=== PATIENT | male | born 1940 | race Caucasian/White ===

== ENCOUNTER 2020-01-13 22:56 | Observation (INO) ==
[2020-01-14] MEDS ORDERED: Naloxone 0.4 MG/ML INJ IVP PRN (03:41)
[2020-01-14] MEDS ORDERED: Ondansetron ODT 4 MG TAB.RAPDIS SL PRN (03:41)
[2020-01-14] MEDS ORDERED: 0.9 % Sodium Chloride 1,000 ML IVC SCH (03:45)
[2020-01-14 04:43] LABS: Basophils % 0.5 %; Eosinophils # 0.1 K/mcL (0.0-0.6); Eosinophils % 1.9 %; Hematocrit 41.4 % (37.5-50.1); Hemoglobin 12.9 g/dL (12.9-16.9); Immature Granulocytes % 0.4 % (0-4); Lymphocytes % 13.3 %; Mean Corpuscular HGB Conc 31.2 g/dL (31.6-35.5); Mean Corpuscular Hemoglobin 29.1 pg (28.0-33.3); Mean Corpuscular Volume 93.5 fL (83.0-100.0); Mean Platelet Volume 11.4 fL (9.4-12.4); Monocytes % 12.9 %; Neutrophils # 5.3 K/mcL (1.6-8.9); Platelet Count 164 K/mcL (140-400); Red Blood Count 4.43 M/mcL (4.19-5.50); White Blood Count 7.5 K/mcL (4.3-11.1)
[2020-01-14 04:46] LABS: INR 2.9
[2020-01-14 05:00] LABS: Alanine Aminotransferase 17 Units/L (7-52); Albumin 3.4 g/dL (3.5-5.7); Albumin/Globulin Ratio 1.2 (1.1-2.2); Alkaline Phosphatase 105 Units/L (34-104); Aspartate Amino Transferase 16 Units/L (13-39); BUN/Creatinine Ratio 19 (6-26); Bilirubin,Total 0.3 mg/dL (0.3-1.0); Blood Urea Nitrogen 21 mg/dL (8-23); Calcium 8.8 mg/dL (8.6-10.3); Carbon Dioxide 34 mEq/L (23-29); Chloride 99 mEq/L (98-107); Chol/HDL Ratio 4.3 (0-4.9); Cholesterol 155 mg/dL (< 200); Globulin 2.8 g/dL (2.4-3.5); Glucose 187 mg/dL (70-105); HDL Cholesterol 36 mg/dL (40-59); LDL Cholesterol,Calculated 89 mg/dL (0-99); Magnesium 1.5 mg/dL (1.6-2.6); Osmolality,Calculated 294 (280-300); Phosphorous 2.9 mg/dL (2.7-4.5); Potassium 3.7 mEq/L (3.5-5.1); Sodium 138 mEq/L (136-145); Total Protein 6.2 g/dL (6.4-8.9); Triglycerides 148 mg/dL (< 150); eGFR For African Americans > 60 (> 60); eGFR For Non-African Americans > 60 (> 60)
[2020-01-14 09:01] LABS: Estimated Average Glucose 180 mg/dl
[2020-01-14] MEDS ORDERED: D5% in Water 1,000 ML IVC PRN (10:58)
[2020-01-14] MEDS ORDERED: Dextrose Gel 15 GM/37.5 ML TUBE PO PRN ×2 (10:58)
[2020-01-14] MEDS ORDERED: *HR* Dextrose 50 % in Water (Syg) 50 ML SYRINGE IVP PRN (10:58)
[2020-01-14] MEDS ORDERED: Magnesium Sulfate 1 GM/102 ML PIGGYBACK IVPB ONE (10:59)
[2020-01-14] MEDS ORDERED: *HR* Labetalol 20 MG/4 ML SYRINGE IVP PRN (11:02)
[2020-01-14] MEDS: Insulin LISPRO 300 UNITS/3 ML VIAL SQ SCH ×3 (12:21→17:47)
[2020-01-14] MEDS: Cyanocobalamin (B-12) 1,000 MCG/ML VIAL SQ SCH (13:18)
[2020-01-14] MEDS: niCARdipine 20 MG/200 ML MLS IVC SCH (14:42)
[2020-01-14 15:30] LABS: Bilirubin,Urine Negative (Negative); Blood,Urine Trace (Negative); Clarity,Urine Clear (Clear); Color,Urine Yellow (Yellow); Glucose,Urine (UA) 100 mg/dL (Normal); Ketones,Urine Negative (Negative); Leukocyte Esterase,Urine Negative (Negative); Nitrite,Urine Negative (Negative); Protein,Urine >=300 mg/dL (Neg-Trace); Specific Gravity,Urine 1.014 (1.010-1.025); Urobilinogen,Urine Normal (Normal)
[2020-01-14 15:31] LABS: Bacteria,Urine None Seen per hpf (None-Few); Hyaline Casts,Urine None Seen per lpf (None-Few); Squamous Epithelial Cell,Urine Many per lpf (None-Few); WBC,Urine 0-3 per hpf (0-3)
[2020-01-14] MEDS ORDERED: *HR* Warfarin 1 MG TABLET PO ONE (18:00)
[2020-01-14] MEDS ORDERED: Warfarin perPT PO PRN (18:00)
[2020-01-14] MEDS ORDERED: Insulin LISPRO 300 UNITS/3 ML VIAL SQ SCH (21:00)
[2020-01-14] MEDS ORDERED: Perflutren Lipid Microsphere 1.3 ML in 0.9 % Sodium Chloride 8.7 ML IVP ONE (21:04)
[2020-01-15] MEDS: niCARdipine 20 MG/200 ML MLS IVC SCH ×4 (00:18→08:22)
[2020-01-15 01:16] LABS: INR 3.1
[2020-01-15 01:29] LABS: BUN/Creatinine Ratio 16 (6-26); Blood Urea Nitrogen 15 mg/dL (8-23); Calcium 8.8 mg/dL (8.6-10.3); Carbon Dioxide 31 mEq/L (23-29); Chloride 102 mEq/L (98-107); Glucose 135 mg/dL (70-105); Magnesium 1.7 mg/dL (1.6-2.6); Osmolality,Calculated 293 (280-300); Phosphorous 2.5 mg/dL (2.7-4.5); Potassium 3.7 mEq/L (3.5-5.1); Sodium 140 mEq/L (136-145); eGFR For African Americans > 60 (> 60); eGFR For Non-African Americans > 60 (> 60)
[2020-01-15] MEDS: Insulin LISPRO 300 UNITS/3 ML VIAL SQ SCH ×2 (08:22→12:24)
[2020-01-15] MEDS: Cyanocobalamin (B-12) 1,000 MCG/ML VIAL SQ SCH (08:23)
[2020-01-15] MEDS ORDERED: Aspirin 81 MG TAB.CHEW PO SCH (09:00)
[2020-01-15 11:47] VITALS: BP 134/85
[2020-01-15] MEDS ORDERED: *HR* Warfarin 1 MG TABLET PO ONE (18:00)
== END 2020-01-15 15:34 | disposition home health service (06) ==
LOC: 3BNU → EDSTATUS 01-14 02:39 → SUATTDRO 01-14 02:40 → 2NNU 01-14 14:51
PROVIDERS: ADMIT Internal Medicine; ATTEND Internal Medicine

== ENCOUNTER 2020-06-14 11:49 | Inpatient (IN) ==
[2020-06-14] MEDS ORDERED: *HR* Heparin 10,000 UNIT/10 ML VIAL ONE (11:52)
[2020-06-14] MEDS ORDERED: Heparin 1,000 UNITS/500 mL 0 ML ONE (11:52)
[2020-06-14] MEDS ORDERED: *HR* Midazolam HCl 2 MG/2 ML VIAL ONE (11:52)
[2020-06-14] MEDS ORDERED: *HR* FentaNYL (PF) 100 MCG/2 ML VIAL ONE (11:52)
[2020-06-14] MEDS ORDERED: 0.9 % Sodium Chloride 2,000 ML ONE (11:53)
[2020-06-14] MEDS ORDERED: ISOVUE-370 200 ML INFUS..BTL ONE (11:53)
[2020-06-14] MEDS ORDERED: Nitroglycerin 1,000 MCG/10 ML VIAL IV ONE (11:53)
[2020-06-14 12:13] LABS: Basophils % 0.5 %; Eosinophils # 0.1 K/mcL (0.0-0.6); Eosinophils % 1.3 %; Hematocrit 44.5 % (37.5-50.1); Hemoglobin 14.3 g/dL (12.9-16.9); Immature Granulocytes % 0.6 % (0-4); Lymphocytes # 0.9 K/mcL (0.6-4.6); Lymphocytes % 11.8 %; Mean Corpuscular HGB Conc 32.1 g/dL (31.6-35.5); Mean Corpuscular Volume 93.3 fL (83.0-100.0); Mean Platelet Volume 11.5 fL (9.4-12.4); Monocytes # 1.2 K/mcL (0.0-1.3); Monocytes % 15.2 %; Neutrophils # 5.6 K/mcL (1.6-8.9); Platelet Count 172 K/mcL (140-400); Red Blood Count 4.77 M/mcL (4.19-5.50); Red Cell Distribution Width 13.4 % (11.5-14.5); Segmented Neutrophils % 70.6 %
[2020-06-14 12:19] LABS: INR 1.9; Prothrombin Time 21.1 Seconds (9.4-12.1)
[2020-06-14 12:22] LABS: Activated Partial Thrombo Time 40.4 Seconds (26.0-36.0)
[2020-06-14] MEDS ORDERED: Tirofiban 12.5 MG/250ML 12.5 MG/250 ML BAG ONE (12:29)
[2020-06-14 12:35] LABS: Alanine Aminotransferase 23 Units/L (7-52); Albumin 3.6 g/dL (3.5-5.7); Albumin/Globulin Ratio 1.1 (1.1-2.2); Alkaline Phosphatase 100 Units/L (34-104); Aspartate Amino Transferase 26 Units/L (13-39); BUN/Creatinine Ratio 17 (6-26); Bilirubin,Direct 0.1 mg/dL (0.0-0.2); Bilirubin,Indirect 0.4 mg/dL (0.0-1.0); Bilirubin,Total 0.5 mg/dL (0.3-1.0); Blood Urea Nitrogen 27 mg/dL (8-23); Carbon Dioxide 31 mEq/L (23-29); Chloride 98 mEq/L (98-107); Ethanol < 10 mg/dL (Less than 10); Globulin 3.3 g/dL (2.4-3.5); Glucose 274 mg/dL (70-105); Osmolality,Calculated 295 (280-300); Sodium 135 mEq/L (136-145); Total Protein 6.9 g/dL (6.4-8.9); Troponin I 0.03 ng/mL (< 0.04); eGFR For African Americans 50 (> 60); eGFR For Non-African Americans 42 (> 60)
[2020-06-14] MEDS ORDERED: *HR* Atropine Sulfate 1 MG/10 ML SYRINGE ONE (12:37)
[2020-06-14] MEDS ORDERED: Perflutren Lipid Microsphere 1.3 ML in 0.9 % Sodium Chloride 8.7 ML IVP PRN (13:56)
[2020-06-14] MEDS ORDERED: D5% in Water 1,000 ML IVC PRN (14:48)
[2020-06-14] MEDS ORDERED: Dextrose Gel 15 GM/37.5 ML TUBE PO PRN ×2 (14:48)
[2020-06-14] MEDS ORDERED: *HR* Dextrose 50 % in Water (Vial) 50 ML VIAL IVP PRN (14:48)
[2020-06-14] MEDS: 0.9 % Sodium Chloride 1,000 ML IVC SCH ×2 (15:08→22:27)
[2020-06-14 15:56] LABS: Bilirubin,Urine Negative (Negative); Blood,Urine Small (Negative); Clarity,Urine Clear (Clear); Color,Urine Colorless (Yellow); Glucose,Urine (UA) 500 mg/dL (Normal); Ketones,Urine Negative (Negative); Leukocyte Esterase,Urine Negative (Negative); Mucus,Urine Few per lpf (None-Few); Nitrite,Urine Negative (Negative); Protein,Urine 70 mg/dL (Neg-Trace); Specific Gravity,Urine 1.028 (1.010-1.025); Urobilinogen,Urine Normal (Normal); WBC,Urine 0-3 per hpf (0-3)
[2020-06-14 16:12] LABS: Amphetamine Screen,Urine Negative ng/mL (Cutoff=1000); Barbiturate Screen,Urine Negative ng/mL (Cutoff=200); Benzodiazepines Screen,Urine Negative ng/mL (Cutoff=200); Cannabinoid Screen,Urine Negative ng/mL (Cutoff = 50); Cocaine Screen,Urine Negative ng/mL (Cutoff= 300); Opiate Screen,Urine Negative ng/mL (Cutoff=300); Phencyclidine Screen,Urine Negative ng/mL (Cutoff=25)
[2020-06-14] MEDS: Insulin LISPRO 300 UNITS/3 ML VIAL SQ SCH (16:46)
[2020-06-14] MEDS: Metoprolol XL (24 HR) Succ 25 MG TAB.ER.24H PO SCH (17:21)
[2020-06-14] MEDS: *HR* Warfarin 1 MG TABLET PO SCH (18:11)
[2020-06-14] MEDS: PARoxetine HCL 10 MG TABLET PO SCH (22:27)
[2020-06-15 04:22] LABS: Basophils % 0.5 %; Eosinophils # 0.1 K/mcL (0.0-0.6); Eosinophils % 1.1 %; Hematocrit 41.6 % (37.5-50.1); Hemoglobin 13.4 g/dL (12.9-16.9); Immature Granulocytes % 0.5 % (0-4); Lymphocytes % 11.3 %; Mean Corpuscular HGB Conc 32.2 g/dL (31.6-35.5); Mean Corpuscular Hemoglobin 30.2 pg (28.0-33.3); Mean Corpuscular Volume 93.9 fL (83.0-100.0); Mean Platelet Volume 11.4 fL (9.4-12.4); Monocytes # 1.3 K/mcL (0.0-1.3); Monocytes % 14.9 %; Neutrophils # 6.3 K/mcL (1.6-8.9); Platelet Count 177 K/mcL (140-400); Red Blood Count 4.43 M/mcL (4.19-5.50); Red Cell Distribution Width 13.4 % (11.5-14.5); Segmented Neutrophils % 71.7 %; White Blood Count 8.8 K/mcL (4.3-11.1)
[2020-06-15 04:43] LABS: BUN/Creatinine Ratio 17 (6-26); Blood Urea Nitrogen 23 mg/dL (8-23); Calcium 8.4 mg/dL (8.6-10.3); Carbon Dioxide 31 mEq/L (23-29); Chloride 100 mEq/L (98-107); Glucose 184 mg/dL (70-105); Osmolality,Calculated 292 (280-300); Potassium 4.1 mEq/L (3.5-5.1); Sodium 137 mEq/L (136-145); eGFR For African Americans > 60 (> 60); eGFR For Non-African Americans 51 (> 60)
[2020-06-15 04:47] LABS: Troponin I 10.34 ng/mL (< 0.04)
[2020-06-15] MEDS: Aspirin 81 MG TAB.CHEW PO SCH (08:21)
[2020-06-15] MEDS: PARoxetine HCL 10 MG TABLET PO SCH ×2 (08:21→20:07)
[2020-06-15] MEDS: Metoprolol XL (24 HR) Succ 25 MG TAB.ER.24H PO SCH (08:21)
[2020-06-15] MEDS: Insulin LISPRO 300 UNITS/3 ML VIAL SQ SCH ×3 (08:28→18:20)
[2020-06-15] MEDS: amLODIPine 5 MG TABLET PO SCH (09:44)
[2020-06-15] MEDS: 0.9 % Sodium Chloride 1,000 ML IVC SCH ×3 (10:32→20:18)
[2020-06-15 13:50] LABS: INR 2.1; Prothrombin Time 24.1 Seconds (9.4-12.1)
[2020-06-15] MEDS: lisinopriL 20 MG TABLET PO SCH (14:15)
[2020-06-15] MEDS: *HR* Warfarin 1 MG TABLET PO SCH (18:20)
[2020-06-15 18:29] LABS: Hematocrit 43.6 % (37.5-50.1); Hemoglobin 14.1 g/dL (12.9-16.9); Mean Corpuscular HGB Conc 32.3 g/dL (31.6-35.5); Mean Corpuscular Hemoglobin 30.1 pg (28.0-33.3); Mean Corpuscular Volume 93.2 fL (83.0-100.0); Mean Platelet Volume 11.4 fL (9.4-12.4); Platelet Count 177 K/mcL (140-400); Red Blood Count 4.68 M/mcL (4.19-5.50); Red Cell Distribution Width 13.5 % (11.5-14.5); White Blood Count 9.2 K/mcL (4.3-11.1)
[2020-06-15 18:49] LABS: Alanine Aminotransferase 36 Units/L (7-52); Albumin 3.5 g/dL (3.5-5.7); Albumin/Globulin Ratio 1.1 (1.1-2.2); Alkaline Phosphatase 109 Units/L (34-104); Aspartate Amino Transferase 73 Units/L (13-39); BUN/Creatinine Ratio 19 (6-26); Bilirubin,Total 0.3 mg/dL (0.3-1.0); Blood Urea Nitrogen 26 mg/dL (8-23); Calcium 8.8 mg/dL (8.6-10.3); Carbon Dioxide 29 mEq/L (23-29); Chloride 101 mEq/L (98-107); Globulin 3.3 g/dL (2.4-3.5); Glucose 243 mg/dL (70-105); Osmolality,Calculated 297 (280-300); Potassium 3.9 mEq/L (3.5-5.1); Sodium 137 mEq/L (136-145); Total Protein 6.8 g/dL (6.4-8.9); eGFR For African Americans > 60 (> 60); eGFR For Non-African Americans 50 (> 60)
[2020-06-15] MEDS ORDERED: Haloperidol Lactate 5 MG/ML VIAL IVP PRN (19:59)
[2020-06-16 05:09] LABS: Basophils # 0.1 K/mcL (0.0-0.2); Basophils % 0.5 %; Eosinophils # 0.1 K/mcL (0.0-0.6); Eosinophils % 1.4 %; Hematocrit 43.8 % (37.5-50.1); Hemoglobin 14.3 g/dL (12.9-16.9); Immature Granulocytes % 0.6 % (0-4); Mean Corpuscular HGB Conc 32.6 g/dL (31.6-35.5); Mean Corpuscular Hemoglobin 30.6 pg (28.0-33.3); Mean Corpuscular Volume 93.8 fL (83.0-100.0); Monocytes # 1.5 K/mcL (0.0-1.3); Monocytes % 15.1 %; Neutrophils # 7.2 K/mcL (1.6-8.9); Platelet Count 172 K/mcL (140-400); Red Blood Count 4.67 M/mcL (4.19-5.50); Red Cell Distribution Width 13.6 % (11.5-14.5); Segmented Neutrophils % 72.4 %; White Blood Count 9.9 K/mcL (4.3-11.1)
[2020-06-16 05:17] LABS: Prothrombin Time 22.6 Seconds (9.4-12.1)
[2020-06-16 05:27] LABS: BUN/Creatinine Ratio 19 (6-26); Blood Urea Nitrogen 23 mg/dL (8-23); Calcium 8.8 mg/dL (8.6-10.3); Carbon Dioxide 31 mEq/L (23-29); Chloride 103 mEq/L (98-107); Glucose 179 mg/dL (70-105); Osmolality,Calculated 296 (280-300); Potassium 3.9 mEq/L (3.5-5.1); Sodium 139 mEq/L (136-145); eGFR For African Americans > 60 (> 60); eGFR For Non-African Americans 57 (> 60)
[2020-06-16] MEDS: Metoprolol XL (24 HR) Succ 25 MG TAB.ER.24H PO SCH (07:35)
[2020-06-16] MEDS: lisinopriL 20 MG TABLET PO SCH (07:35)
[2020-06-16] MEDS: Aspirin 81 MG TAB.CHEW PO SCH (07:35)
[2020-06-16] MEDS: amLODIPine 5 MG TABLET PO SCH (07:35)
[2020-06-16] MEDS: PARoxetine HCL 10 MG TABLET PO SCH ×2 (07:35→19:22)
[2020-06-16] MEDS: Insulin LISPRO 300 UNITS/3 ML VIAL SQ SCH ×3 (07:36→16:17)
[2020-06-16] MEDS: 0.9 % Sodium Chloride 1,000 ML IVC SCH (14:57)
[2020-06-16] MEDS ORDERED: *HR* Dextrose 50 % in Water (Vial) 50 ML VIAL IVP PRN (15:00)
[2020-06-16] MEDS ORDERED: Haloperidol Lactate 5 MG/ML VIAL IVP PRN (15:00)
[2020-06-16] MEDS ORDERED: Dextrose Gel 15 GM/37.5 ML TUBE PO PRN ×2 (15:00)
[2020-06-16] MEDS ORDERED: D5% in Water 1,000 ML IVC PRN (15:00)
[2020-06-16] MEDS ORDERED: *HR* Warfarin 2 MG TABLET PO SCH ×2 (18:00)
[2020-06-17] MEDS: lisinopriL 20 MG TABLET PO SCH (07:39)
[2020-06-17] MEDS: amLODIPine 5 MG TABLET PO SCH (07:39)
[2020-06-17] MEDS: Aspirin 81 MG TAB.CHEW PO SCH (07:40)
[2020-06-17] MEDS: PARoxetine HCL 10 MG TABLET PO SCH ×2 (07:40→20:18)
[2020-06-17] MEDS: Insulin LISPRO 300 UNITS/3 ML VIAL SQ SCH ×3 (07:50→17:30)
[2020-06-17] MEDS ORDERED: Metoprolol XL (24 HR) Succ 25 MG TAB.ER.24H PO SCH (09:00)
[2020-06-17] MEDS ORDERED: *HR* Atropine Sulfate 1 MG/10 ML SYRINGE ONE (12:00)
[2020-06-17] MEDS ORDERED: Ondansetron 4 MG/2 ML VIAL ONE (12:01)
[2020-06-17] MEDS ORDERED: carvediloL 6.25 MG TABLET PO SCH (17:00)
[2020-06-17] MEDS: carvediloL 6.25 MG TABLET PO SCH (17:30)
[2020-06-17] MEDS ORDERED: *HR* Warfarin 1 MG TABLET PO SCH (18:00)
[2020-06-18] MEDS: carvediloL 6.25 MG TABLET PO SCH ×2 (08:07→17:20)
[2020-06-18] MEDS: amLODIPine 5 MG TABLET PO SCH (08:08)
[2020-06-18] MEDS: Aspirin 81 MG TAB.CHEW PO SCH (08:08)
[2020-06-18] MEDS: PARoxetine HCL 10 MG TABLET PO SCH ×2 (08:08→19:55)
[2020-06-18] MEDS: lisinopriL 20 MG TABLET PO SCH (08:10)
[2020-06-18] MEDS: Insulin LISPRO 300 UNITS/3 ML VIAL SQ SCH ×3 (08:12→17:21)
[2020-06-18 11:24] LABS: INR 1.7; Prothrombin Time 19.3 Seconds (9.4-12.1)
[2020-06-18] MEDS ORDERED: *HR* Warfarin 2 MG TABLET PO ONE (18:00)
[2020-06-18] MEDS ORDERED: Warfarin perPT PO PRN (18:00)
[2020-06-19 06:29] LABS: Hematocrit 41.1 % (37.5-50.1); Mean Corpuscular HGB Conc 31.6 g/dL (31.6-35.5); Mean Corpuscular Hemoglobin 29.4 pg (28.0-33.3); Mean Platelet Volume 11.5 fL (9.4-12.4); Platelet Count 187 K/mcL (140-400); Red Blood Count 4.42 M/mcL (4.19-5.50); Red Cell Distribution Width 13.3 % (11.5-14.5); White Blood Count 10.8 K/mcL (4.3-11.1)
[2020-06-19 06:36] LABS: INR 1.8; Prothrombin Time 20.5 Seconds (9.4-12.1)
[2020-06-19 06:55] LABS: Calcium 8.7 mg/dL (8.6-10.3); Potassium 4.2 mEq/L (3.5-5.1)
[2020-06-19] MEDS: Insulin LISPRO 300 UNITS/3 ML VIAL SQ SCH ×3 (07:42→16:27)
[2020-06-19] MEDS: carvediloL 6.25 MG TABLET PO SCH ×2 (07:43→16:56)
[2020-06-19] MEDS: Aspirin 81 MG TAB.CHEW PO SCH (07:44)
[2020-06-19] MEDS: lisinopriL 20 MG TABLET PO SCH (07:44)
[2020-06-19] MEDS: amLODIPine 5 MG TABLET PO SCH (07:44)
[2020-06-19] MEDS: PARoxetine HCL 10 MG TABLET PO SCH ×2 (07:44→20:23)
[2020-06-19] MEDS ORDERED: 0.9 % Sodium Chloride 1,000 ML IVC SCH (09:00)
[2020-06-19] MEDS ORDERED: *HR* Warfarin 2 MG TABLET PO ONE (18:00)
[2020-06-20 01:02] LABS: Prothrombin Time 22.9 Seconds (9.4-12.1)
[2020-06-20 01:17] LABS: Calcium 8.3 mg/dL (8.6-10.3); Potassium 4.2 mEq/L (3.5-5.1)
[2020-06-20] MEDS: carvediloL 6.25 MG TABLET PO SCH ×2 (07:54→16:51)
[2020-06-20] MEDS: Aspirin 81 MG TAB.CHEW PO SCH (07:54)
[2020-06-20] MEDS: PARoxetine HCL 10 MG TABLET PO SCH (07:54)
[2020-06-20] MEDS: lisinopriL 20 MG TABLET PO SCH (07:54)
[2020-06-20] MEDS: amLODIPine 5 MG TABLET PO SCH (07:54)
[2020-06-20] MEDS: Insulin LISPRO 300 UNITS/3 ML VIAL SQ SCH ×3 (07:56→16:51)
[2020-06-20 15:45] VITALS: BP 144/65
[2020-06-20] MEDS ORDERED: *HR* Warfarin 2 MG TABLET PO ONE (18:00)
== END 2020-06-20 18:25 | DRG 247 ==
LOC: ICNU 11:49 → EMEROOARM 11:49 → ICNU 12:00 → 2NNU 06-18 22:22
PROVIDERS: ADMIT Internal Medicine Cardiovascular Disease; ATTEND Internal Medicine Cardiovascular Disease